=== PATIENT | female | born 1970 | race American Indian/Alaskan Native ===

== ENCOUNTER 2021-02-26 11:48 | Emergency (ER) | payer MEDICAID ==
[2021-02-26 12:05] VITALS: BP 132/82
--- NOTE | 2021-02-26 13:37 | Emergency Department Report ---
ED General Adult HPI - General Chief complaint: Abdominal Pain Stated complaint: LEG PAIN Time Seen by Provider: 02/26/21 12:59 Source: patient Mode of arrival: Wheelchair Limitations: No Limitations - History of Present Illness Initial comments: 50-year-old female with a past medical history of neuropathy, arthritis, anxiety and depression, and obesity presents to the ER today with complaints of abdominal discomfort and bilateral knee pain. Patient states that she had a laparoscopic umbilical hernia repair done [place] about 2 [place] ago. She states that she has been having some "tightness" around her waistline since the surgery, but she states that recently she feels like a tightness has gotten a little worse, and she feels like something has dropped to the bottom of her abdomen. She denies any apparent swelling or bulging. She denies vomiting. Patient reports a history of constipation and she states that she has to take laxative sometimes to help with bowel movements. She states that she did take a laxative yesterday and it has been helping today so far she has had 3 bowel movements. She denies any melena, mucus in the stool or hematochezia. She denies any fever or chills. Patient also complains of pain to her bilateral legs, more so to her knees. Patient states that she has had this pain in her legs for months. She did see her primary care doctor back in December for the pain and she had x-rays of both knees and was told that she had "bad arthritis" to her knees and also peripheral neuropathy. She has not had a chance to see an retail experience specialist for arthritis. She states that the pain is worse with ambulation and weightbearing. She denies any recent injury to her knees nor her legs. She denies any apparent bruising or erythema or calf pain. She reports intermittent swelling to both of her legs but nothing worse recently. She denies any chest pain or shortness of breath she denies any patient is on gabapentin for pain but she states that is not helping. She states that she just really needs something to help the pain until she can follow-up with a "specialist". Complaint: Abdominal discomfort/bilateral knee pain -: month(s) - Related Data Previous Rx's Medication Instructions Recorded Last Taken Type Ibuprofen [Motrin] 600 mg PO Q8H PRN #30 tablet 02/26/21 Unknown Rx Tramadol HCl/Acetaminophen 1 each PO Q6HR #13 tablet 02/26/21 Unknown Rx [Ultracet Tablet] methOCARBAMOL [Robaxin TAB] 750 mg PO Q8H PRN #30 tablet 02/26/21 Unknown Rx Allergies Allergy/AdvReac Type Severity Reaction Status Date / Time No Known Allergies Allergy Unverified 02/26/21 12:08 ED Review of Systems ROS: Stated complaint: LEG PAIN Other details as noted in HPI Comment: All other systems reviewed and negative Constitutional: denies: chills, fever Eyes: denies: eye pain, eye discharge, vision change ENT: denies: ear pain, throat pain Respiratory: denies: cough, shortness of breath, SOB with exertion, SOB at rest, wheezing Cardiovascular: denies: chest pain, palpitations, dyspnea on exertion, edema, syncope, paroxysmal nocturnal dyspnea Gastrointestinal: abdominal pain, constipation. denies: nausea, vomiting, diarrhea, hematemesis, melena, hematochezia Genitourinary: denies: urgency, dysuria, discharge Musculoskeletal: arthralgia Skin: denies: rash, lesions, change in color, change in hair/nails, pruritus Neurological: denies: headache, weakness, paresthesias, confusion Psychiatric: denies: anxiety, depression Hematological/Lymphatic: denies: easy bleeding, easy bruising ED Past Medical Hx - Medications Home Medications: Home Medications Medication Instructions Recorded Confirmed Last Taken Type Ibuprofen [Motrin] 600 mg PO Q8H PRN #30 tablet 02/26/21 Unknown Rx Tramadol HCl/Acetaminophen 1 each PO Q6HR #13 tablet 02/26/21 Unknown Rx [Ultracet Tablet] methOCARBAMOL [Robaxin TAB] 750 mg PO Q8H PRN #30 tablet 02/26/21 Unknown Rx ED Physical Exam - General Limitations: No Limitations General appearance: alert, obese - Head Head exam: Present: atraumatic, normocephalic, normal inspection - Eye Eye exam: Present: normal appearance, PERRL, EOMI Pupils: Present: normal accommodation - ENT ENT exam: Present: normal exam, mucous membranes moist, TM's normal bilaterally - Neck Neck exam: Present: normal inspection - Respiratory Respiratory exam: Present: normal lung sounds bilaterally - Cardiovascular Cardiovascular Exam: Present: regular rate, normal rhythm - GI/Abdominal GI/Abdominal exam: Present: soft. Absent: distended, tenderness, rebound, rigid, hernia - Extremities Exam Extremities exam: Present: normal inspection, full ROM, tenderness (Patient has mild tenderness to palpation to the anterior aspect of both knees. No swelling or effusion.). Absent: pedal edema, joint swelling, calf tenderness - Neurological Exam Neurological exam: Present: alert, oriented X3, CN II-XII intact - Psychiatric Psychiatric exam: Present: normal affect, normal mood - Skin Skin exam: Present: intact ED Course Vital Signs 02/26/21 11:59 Temperature 98.8 F Pulse Rate 83 Respiratory 18 Rate Blood Pressure 132/82 O2 Sat by Pulse 100 Oximetry ED Medical Decision Making - Radiology Data Radiology results: report reviewed Patient: FROYLAN PANTOJA MR#: [id number] : 1970 Acct:[id number] Age/Sex: 50 / F ADM Date: 02/26/21 Loc: ED Attending Dr: Ordering Physician: RON TRACEY Date of Service: 02/26/21 Procedure(s): XR abdomen 1V ap Accession Number(s): [id number] cc: RON TRACEY Fluoro Time In Minutes: XR abdomen 1V ap INDICATION / CLINICAL INFORMATION: Abdominal tight. COMPARISON: None available. FINDINGS: TUBES / LINES: None. BOWEL GAS PATTERN: Nonobstructive bowel gas pattern. FREE AIR / EXTRALUMINAL GAS: None seen. ADDITIONAL FINDINGS: No significant additional findings. IMPRESSION: 1. No significant abnormality. Signer Name: Duc Hayes MD Signed: 02/26/2021 2:13 PM Workstation Name: [id number] Transcribed By: Dictated By: Duc Hayes MD Electronically Authenticated By: Duc Hayes MD Signed Date/Time: 02/26/21 141 DD/ 10 TD/TT: - Medical Decision Making Patient presents with complaints of tightness around her abdomen after having umbilical hernia repair about 2 months ago in [place]. She came in because she feels like the tightness is getting a little worse and she reports that she felt like something dropped to the bottom of her abdomen. She has no additional GI symptoms associated with the abdominal discomfort. She also complains of bilateral knee pain which she has had chronically for months. She has known history of arthritis to the knee as well as neuropathy. patient currently resting comfortably. She is not toxic or ill-appearing. She is not currently in any acute distress. He is neurologically intact. She has a soft nontender abdomen and no abdominal distention. No obvious signs of hernia on exam. KUB shows no significant abnormality. Urinalysis does not suggest a UTI. hCG negative. Patient vital signs are stable. The history, exam, diagnostic testing and current condition do not suggest acute appendicitis, bowel obstruction, acute cholecystitis, bowel perforation, major GI bleed, severe diverticulitis, abdominal aortic aneurysm, mesenteric ischemia, volvulus, sepsis or other significant pathology to warrant further testing, continued ED treatment, admission or surgical evaluation at this point. Her bilateral knee pain is chronic and is related to arthritis. She is on gabapentin now for pain but she states that is not really helping and she is requesting something for pain until she can follow-up with an retail experience specialist. She has no calf tenderness or lower extremity swelling. She has no chest pain or shortness of breath. Physical exam of her lower extremity does not suggest septic joint, acute arterial occlusion, cellulitis or DVT. Discussed imaging results and urinalysis results with patient. She will be given referral to Ortho, as well as a local primary care doctor and GI speciali st for follow-up. Patient expressed understanding for instructions and agree with plan. Patient was stable at time of discharge. Critical care attestation.: If time is entered above; I have spent that time in minutes in the direct care of this critically ill patient, excluding procedure time. ED Disposition Clinical Impression: Abdominal discomfort, Chronic knee pain Disposition: HOME / SELF CARE / HOMELESS Is pt being admited?: No Does the pt Need Aspirin: No Condition: Stable Instructions: Abdominal Pain, Adult, [id number], Chronic Knee Pain, Adult, Abdominal Pain (ED) Additional Instructions: I recommend that you take the ultram and the motrin as prescribed to help with your pain. I do recommend that you follow-up with the primary care doctor, the retail experience specialist and the GI specialist listed on your discharge instructions for further evaluation. Return to the ER if at any point your symptoms worsens more so if your abdominal pain worsened with associated nausea, vomiting, fever or chills. Prescriptions: Ibuprofen [Motrin] 600 mg PO Q8H PRN #30 tablet PRN Reason: Pain methOCARBAMOL [Robaxin TAB] 750 mg PO Q8H PRN #30 tablet PRN Reason: Spasms Tramadol HCl/Acetaminophen [Ultracet Tablet] 1 each PO Q6HR #13 tablet Referrals: FARIDEH MARTÍNEZ MD [Staff Physician] - 3-5 Days (Primary care physician) [facility] [Provider Group] - 3-5 Days (Primary care physician) [facility] [Provider Group] - 3-5 Days (Delivery Associate) EVELYN HENRIQUEZ MD [Staff Physician] - 3-5 Days (pulmonary disease specialist) Time of Disposition: 15:26 Print Language: COLOMBIAN
--- NOTE | 2021-02-26 14:17 | XRay Report ---
XR abdomen 1V ap INDICATION / CLINICAL INFORMATION: Abdominal tight. COMPARISON: None available. FINDINGS: TUBES / LINES: None. BOWEL GAS PATTERN: Nonobstructive bowel gas pattern. FREE AIR / EXTRALUMINAL GAS: None seen. ADDITIONAL FINDINGS: No significant additional findings. IMPRESSION: 1. No significant abnormality. Signer Name: Duc Hayes MD Signed: 02/26/2021 2:13 PM Workstation Name: [id number]
[2021-02-26 14:54] LABS: HCG Qualitative,Urine Negative (Negative)
[2021-02-26 15:23] LABS: Bacteria,Urine 1+ /HPF (Negative); Bilirubin,Urine NEG (Negative); Blood,Urine NEG (Negative); Color,Urine Yellow (Yellow); Mucus,Urine FEW /HPF; Urobilinogen,Urine < 2.0 mg/dL (<2.0)
== END 2021-02-26 16:10 | disposition home or self-care (01) ==
LOC: ED 11:48
DX: R10.9 Unspecified abdominal pain (principal); M25.562 Pain in left knee; M25.561 Pain in right knee; G89.29 Other chronic pain; Z98.890 Other specified postprocedural states
CPT/HCPCS: 74018; 81001; 81025; 99284

== ENCOUNTER 2021-05-13 08:16 | Emergency (ER) | payer MEDICAID ==
[2021-05-13 08:29] VITALS: BP 132/99
--- NOTE | 2021-05-13 09:03 | Emergency Department Report ---
Blank Doc - Documentation Documentation: 50-year-old female that presents with generalized pain, bilateral knee pain with left worse, generalized itching with rash. 1- This is a initial triage assessment/medical screening only. Full assessment and work-up will be completed once the patient is in proper hospital gown, ED bed and in a private room setting. This initial assessment/diagnostic orders/clinical plan/ treatment(s) is/are subject to change based on pt's health status, clinical progression and re-assessment by fellow clinical providers in the ED. Further treatment and workup at subsequent clinical providers discretion. Patient/guardians urged not to elope from ED as their condition may be serious if not clinically assessed and managed. 2-labs 3-UA The patient was evaluated in the emergency department for symptoms described in the history of present illness. He/she was evaluated in the context of the global COVID-19 pandemic, which necessitated consideration that the patient might be at risk for infection with the virus that causes COVID-19. Institutional protocols and algorithms that pertain to the evaluation of patients at risk for COVID-19 are in a state of rapid change based on information released by regulatory bodies including the CDC and federal and state organizations. These policies and algorithms were followed during the patient's care in the emergency department. Please note that these policies, procedures and recommendations changed on a rapid basis.
[2021-05-13 10:02] LABS: Basophils # (Auto) 0.1 K/mm3 (0.0-0.1); Basophils % (Auto) 1.1 % (0.0-1.8); Eosinophils # (Auto) 0.6 K/mm3 (0.0-0.4); Eosinophils % (Auto) 8.6 % (0.0-4.3); Hematocrit 39.1 % (30.3-42.9); Hemoglobin 12.3 gm/dl (10.1-14.3); Lymphocytes # (Auto) 1.9 K/mm3 (1.2-5.4); Lymphocytes % (Auto) 27.1 % (13.4-35.0); Mean Corpuscular HGB Conc 32 % (30-34); Mean Corpuscular Volume 92 fl (79-97); Monocytes # (Auto) 0.5 K/mm3 (0.0-0.8); Monocytes % (Auto) 7.1 % (0.0-7.3); Platelet Count 357 K/mm3 (140-440); Red Blood Count 4.24 M/mm3 (3.65-5.03); Red Cell Distribution Width 13.9 % (13.2-15.2)
[2021-05-13 10:08] LABS: INR 0.94 (0.87-1.13)
[2021-05-13 10:09] LABS: Partial Thromboplastin Time 28.1 Sec. (24.2-36.6)
[2021-05-13 10:30] LABS: Alanine Aminotransferase 12 units/L (7-56); Albumin 3.8 g/dL (3.9-5); BUN/Creatinine Ratio 19; Blood Urea Nitrogen 17 mg/dL (7-17); Calcium 9.1 mg/dL (8.4-10.2); Hemolysis Index 3
--- NOTE | 2021-05-13 13:29 | Emergency Department Report ---
ED General Adult HPI - General Chief complaint: Extremity Problem,Nontraumatic Stated complaint: TAYLOR KNEE PAIN/ITCHING PUI?: No Time Seen by Provider: 05/13/21 08:58 Source: patient Mode of arrival: Wheelchair Limitations: No Limitations - History of Present Illness Initial comments: 50-year-old -Armenian obese female with a past history of peripheral neuropathy, chronic arthritis to both knees, chronic eczema, and anxiety presents to the ER today with complaints of flareup of pain to both knees but more so on the right side and diffuse itching and worsening eczematous rash. Patient states that she is scheduled to see a chrome polisher May 23, she is also scheduled to see a central communications specialist for her knee May 16, she states that the pain in her knee has been unbearable. She also states that the itching has been diffuse and unbearable. She states that she takes gabapentin for peripheral neuropathy but has not tried any other medication for pain from [id number]. She has not taken any Benadryl or antihistamines for itching. She denies any injury to her knees recently. She denies any fever, chills, or any additional symptoms at this time. MD Complaint: Generalized itching, bilateral knee pain, -: month(s) Severity scale (0 -10): 10 - Related Data Previous Rx's Medication Instructions Recorded Last Taken Type Tramadol HCl/Acetaminophen 1 each PO Q6HR #13 tablet 02/26/21 Unknown Rx [Ultracet Tablet] Acetaminophen/Codeine [Tylenol 1 tab PO Q4HR PRN #12 tablet 05/13/21 Unknown Rx /Codeine # 3 tab] Ketorolac [Toradol] 10 mg PO Q6H PRN #20 tablet 05/13/21 Unknown Rx methOCARBAMOL [Robaxin TAB] 750 mg PO Q8H PRN #30 tablet 05/13/21 Unknown Rx Allergies Allergy/AdvReac Type Severity Reaction Status Date / Time No Known Allergies Allergy Unverified 02/26/21 12:08 ED Review of Systems ROS: Stated complaint: TAYLOR KNEE PAIN/ITCHING Other details as noted in HPI Comment: All other systems reviewed and negative Constitutional: denies: chills, fever Eyes: denies: eye pain, eye discharge, vision change ENT: denies: ear pain, throat pain, dental pain, hearing loss, epistaxis, congestion Respiratory: denies: cough, shortness of breath, SOB with exertion, SOB at rest, wheezing Cardiovascular: denies: chest pain, palpitations Gastrointestinal: denies: abdominal pain, nausea, diarrhea, constipation, hematemesis, melena, hematochezia Genitourinary: denies: urgency, dysuria, frequency, hematuria, discharge, abnormal menses, dyspareunia Musculoskeletal: joint swelling, arthralgia. denies: back pain Skin: rash Neurological: denies: headache, weakness, numbness, paresthesias, confusion, abnormal gait, vertigo Psychiatric: denies: anxiety, depression, auditory hallucinations, visual hallucinations, homicidal thoughts, suicidal thoughts Hematological/Lymphatic: denies: easy bleeding, easy bruising, swollen glands ED Past Medical Hx - Past Medical History Previous Medical History?: No - Surgical History Past Surgical History?: Yes Additional Surgical History: umbilical hernia repair - Medications Home Medications: Home Medications Medication Instructions Recorded Confirmed Last Taken Type Tramadol HCl/Acetaminophen 1 each PO Q6HR #13 tablet 02/26/21 Unknown Rx [Ultracet Tablet] Acetaminophen/Codeine [Tylenol 1 tab PO Q4HR PRN #12 tablet 05/13/21 Unknown Rx /Codeine # 3 tab] Ketorolac [Toradol] 10 mg PO Q6H PRN #20 tablet 05/13/21 Unknown Rx methOCARBAMOL [Robaxin TAB] 750 mg PO Q8H PRN #30 tablet 05/13/21 Unknown Rx ED Physical Exam - General Limitations: No Limitations General appearance: alert, obese - Head Head exam: Present: atraumatic, normocephalic, normal inspection - Eye Eye exam: Present: normal appearance, PERRL, EOMI Pupils: Present: normal accommodation - Neck Neck exam: Present: normal inspection, full ROM - Respiratory Respiratory exam: Present: normal lung sounds bilaterally. Absent: respiratory distress, wheezes, rales, rhonchi - Cardiovascular Cardiovascular Exam: Present: regular rate, normal rhythm, normal heart sounds - Extremities Exam Extremities exam: Present: normal inspection, full ROM, other (Mild tenderness palpation to the right knee diffusely. No tenderness to palpation to left knee. There is pain with flexion extension of both knees. No apparent swelling. No calf tenderness or swelling.). Absent: normal capillary refill, pedal edema, joint swelling, calf tenderness - Neurological Exam Neurological exam: Present: alert, oriented X3, CN II-XII intact, normal gait - Psychiatric Psychiatric exam: Present: normal affect, normal mood - Skin Skin exam: Present: rash (Diffuse eczematous rash noted to patient's entire body. No apparent signs of secondary bacterial infection.) ED Course Vital Signs 05/13/21 08:22 Temperature 98.2 F Pulse Rate 82 Respiratory 20 Rate Blood Pressure 132/99 [Right] O2 Sat by Pulse 98 Oximetry ED Medical Decision Making - Lab Data Result diagrams: 05/13/21 09:16 05/13/21 09:16 - Medical Decision Making Patient presents to the ER male with chronic complaints, itching from eczema and bilateral knee pain with known history of arthritis to both knees. She is scheduled to see a chrome polisher and also an central communications specialist this month. All labs reviewed and unremarkable. Patient is nontoxic, she is not ill-ap pearing and not in any significant distress. She does have a diffuse eczematous rash to her body with no apparent signs of secondary infection. No signs of septic joint to her knees, and no concern for DVT as there is no calf pain or swelling. Patient is neurologically intact and she is hemodynamically stable. Patient will be given medication to help with symptoms, but stressed the importance of following up with her chrome polisher and central communications specialist. Patient expressed understanding for instructions and agree with plan. Patient stable at time of discharge. Critical care attestation.: If time is entered above; I have spent that time in minutes in the direct care of this critically ill patient, excluding procedure time. ED Disposition Clinical Impression: Chronic eczema, Chronic knee pain, DJD (degenerative joint disease) of knee Disposition: HOME / SELF CARE / HOMELESS Is pt being admited?: No Does the pt Need Aspirin: No Condition: Stable Instructions: Chronic Knee Pain, Adult, [id number], Osteoarthritis, Eczema Additional Instructions: Recommend that you take the Benadryl at night, and during the day you can take Zyrtec, these will help with your itching but most importantly you need to keep your appointment with your chrome polisher for May 23. Also it is very important to keep your skin very moisturized especially during the winter s eas as this can cause flareup of eczema if it stays dry. Recommend moisturizers to use include Vanicream, Eucerin cream, Aquaphor, CeraVe healing ointment. I also recommend that you keep your appointment with your central communications specialist for further evaluation and treatment of your knee. In the meantime take the Toradol and the Tylenol threes to help with the pain. Return to the ER if anything worsens or changes. Prescriptions: methOCARBAMOL [Robaxin TAB] 750 mg PO Q8H PRN #30 tablet PRN Reason: Spasms Ketorolac [Toradol] 10 mg PO Q6H PRN #20 tablet PRN Reason: Pain Acetaminophen/Codeine [Tylenol /Codeine # 3 tab] 1 tab PO Q4HR PRN #12 tablet PRN Reason: Pain Referrals: PRIMARY CARE,MD [Primary Care Provider] - 3-5 Days Time of Disposition: 13:29
== END 2021-05-14 06:13 | disposition home or self-care (01) ==
LOC: ED 08:16
DX: L30.9 Dermatitis, unspecified (principal); M17.0 Bilateral primary osteoarthritis of knee; R79.1 Abnormal coagulation profile; G89.29 Other chronic pain; Z79.899 Other long term (current) drug therapy
CPT/HCPCS: 36415; 80053; 82550; 83690; 83735; 84703; 85025; 85610; 85730; 99283